=== PATIENT | male | born 1965 | race Caucasian/White ===

== ENCOUNTER 2017-03-13 16:01 | Inpatient (IN) | payer OTHER ==
--- NOTE | 2017-03-13 16:03 | DR.TRAUMA ---
HPI - Time Seen Time seen: 16:00 - HPI Comment HPI Comment: HERE VIA EMS. HIT HEAD WHEN HE FELL AND LOSS CONSCIOUSNESS FOR 45MIN. WAS UNABLE TO GET LAY ON FLOOR FOR 8HOURS. NECK AND RIGHT SHOULDER PAIN. CHEST BRUISE IN UPPER LEFT AND RT CHEST. LEFT FOREHEAD SWOLLEN AND BRUISED. SLEEPY BUT WAKE AND ANSWER QUESTIONS. BLADDER DISTENDED. - Complaint/Symptom Chief Complaint Doctors Comments: FELL IN BATHROOM AT HOME, LOC. NECK AND SHOULDER PAIN. - Nurses notes reviewed Nurses Notes Review: Yes - Source History Provided: Parent, EMS - Mode of Arrival Mode of Arrival: Stretcher - Timing Came on: Suddenly - Duration Duration: Constant Duration: Hours - Context Tetanus: Up to date Mechanism: Fall Prehospital: EMT - Location Location (of pain or injury): Neck, Right, Shoulder, Wrist Lacerations: Extremities - Associated signs and symptoms Associated signs and symptoms: Headache, Weakness ROS - Review of Systems Constitutional: Weakness, Fatigue. negative: Chills, Fever Eyes: No Symptoms Reported ENTM: No Symptoms Reported Cardiovascular: Chest Pain Gastrointestinal/Abdominal: negative: Abdominal Pain, Diarrhea, Nausea, Vomiting Genitourinary: Other (BLADDER DISTENDED.) Neurological: Weakness Musculoskeletal: Back Pain, Neck Pain, Right, Shoulder, Arm Integumentary: Bruises Hematologic/Lymphatic: Easy Bleeding, Easy Bruising Endocrine: No Symptoms Reported All Other Systems: Reviewed and Negative Unable to Obtain Due To: Altered mental status PE - Vitals Vitals: Temperature 97.4 F Pulse Rate [Apical] 73 Pulse Rate 78 Respiratory Rate 18 Blood Pressure [Left Arm] 125/61 Blood Pressure 128/88 O2 Sat by Pulse Oximetry 95 - General Limitations: No Limitations General Appearance: Alert - Head Head Exam: Atraumatic (LT FOREHEAD SWOLLEN AND TENDER.) Head Exam Physical: Other (NONE.) - Eyes Eye exam: PERRL, EOMI, Periorbital Swelling (LT), Periorbital Tenderness (LT). negative: Scleral Icterus, Conjunctival Injection Eyelids: Normal Inspection: Bilateral Pupils: Regular, Round: Bilateral, Reactive: Bilateral Sclera/Conjunctival: Normal Inspection: Bilateral - ENT ENT Exam: Normal External Ear Exam External Ear Exam: Normal External Inspection TM/Canal Exam: Bilateral Normal Mouth Exam: Normal Inspection Teeth Exam: Normal Inspection Throat Exam: Normal Inspection - Neck Neck Exam: Trachea Midline - Chest Chest Inspection: Symmetric Chest Wall Rise, Tenderness Expanded Chest Exam: Abrasion - Respiratory Respiratory Exam: Normal Lung Sounds Bilat, Chest Wall Tenderness (UPPER CHEST.) Respiratory Exam: Bilateral Rhonchi, Lower Rhonchi - Cardiovascular Cardiovascular Exam: Regular Rate, Normal Rhythm, Normal Heart Sounds - Abdominal Exam Abdominal Exam: Normal Bowel Sounds, Soft, Other (BLADDER DISTENDED.). negative : Tenderness - Extremities Extremities Exam: Normal Inspection - Upper Extremities Shoulder Exam: Tenderness (RT SHOUDER WITH DECREASE ROM.) Arm Exam: Tenderness - Neurologic Neurological Exam: Alert, Oriented X3 Speech: Fluid Speech Cranial Nerve Exam: EOM Function (II, III, IV, ): Normal, Facial Sensation (V) : Normal, Facial Palsy (VII): Normal, Gag reflex (XI): Normal, Spinal Accessory Function (XI): Normal, Tongue Deviation: Normal Motor Strength - LUE: 3/5 Motor Strength - RUE: 3/5 Motor Strength - LLE: 3/5 Motor Strength - RLE: 5/5 Upper Motor Neuron Exam: Babinski Sign: Left Positive DTR: Patellar (L): 3+, patellar (R): 4+ - Skin Skin Exam: Erythema MDM - Differential Diagnosis Differential Diagnosis (Trauma): Closed head trauma, Cardiac injury, Fracture (s ), Pneumothorax, Pulmonary contusion, Spine injury Differential Diagnosis (Skin): Abrasion (s), Contusion (s), Hematoma Course - Treatment Treatment: SEE ORDERS. - Consultation Consultation Comments: DISCUSS PATIENT WITH DR. RICH. HE WILL ADMIT PATIENT. - Education/Counseling Education/Counseling: Patient, Education Educated On: Treatment, Diagnosis ROR - Labs Reviewed Laboratory Results Reviewed?: Yes Result Diagrams: 03/14/17 06:05 03/14/17 06:05 Laboratory: WBC 8.9 X10^3/uL (3.6-10.0) 03/14/17 06:05 RBC 4.39 X10^6/uL (4.7-6.0) L 03/14/17 06:05 Hgb 11.4 g/dL (13.5-18.0) L 03/14/17 06:05 Hct 33.8 % (42.0-54.0) L 03/14/17 06:05 MCV 77.1 fL (80.0-100.0) L 03/14/17 06:05 MCH 26.1 pg (27.0-34.0) L 03/14/17 06:05 MCHC 33.8 g/dL (33.0-35.0) 03/14/17 06:05 RDW 18.9 % (11.6-16.5) H 03/14/17 06:05 Plt Count 178 X10^3/uL (150.0-450.0) 03/14/17 06:05 Plt Count Comment Adequate (ADEQUATE) 03/13/17 16:33 MPV 8.3 fL (7.4-11.0) 03/14/17 06:05 Neut % 71.7 % (42.0-75.0) 03/14/17 06:05 Lymph % 15.8 % (21.0-51.0) L 03/14/17 06:05 [place] % 11.1 % (0.0-13.0) 03/14/17 06:05 Eos % 1.0 % (0.9-2.9) 03/14/17 06:05 Baso % 0.4 % (0.2-1.0) 03/14/17 06:05 Neut # 6.4 x10^3/uL (2.2-4.8) H 03/14/17 06:05 Lymph # 1.4 X10^3/uL (1.3-2.9) 03/14/17 06:05 Benson # 1.0 x10^3/uL (0.3-0.8) H 03/14/17 06:05 Eos # 0.1 x10^3/uL (0.0-0.2) 03/14/17 06:05 Baso # 0.0 X10^3/uL (0.0-0.1) 03/14/17 06:05 Absolute Nucleated RBC 0.0 /100WBC 03/14/17 06:05 Plt Morphology Comment Normal (NORMAL) 03/13/17 16:33 RBC Morphology Abnormal (NORMAL) 03/13/17 16:33 Hypochromasia Slight A 03/13/17 16:33 Anisocytosis 1+ A 03/13/17 16:33 Microcytosis Slight A 03/13/17 16:33 Sodium 140 mmol/L (136-145) 03/14/17 06:05 Corrected Sodium 144 mmol/L (136-145) 03/14/17 06:05 Potassium 4.8 mmol/L (3.5-5.1) 03/14/17 06:05 Chloride 106 mmol/L (98-107) 03/14/17 06:05 Carbon Dioxide 26.0 mmol/L (21-32) 03/14/17 06:05 BUN 35 mg/dL (7-18) H 03/14/17 06:05 Creatinine 1.84 mg/dL (0.70-1.30) H 03/14/17 06:05 Est GFR (MDRD) Af Amer 50 (>60) L 03/14/17 06:05 Est GFR (MDRD) Non-Af 41 (>60) L 03/14/17 06:05 Glucose 253 mg/dL (65-99) H 03/14/17 06:05 POC Glucose (mg/dL) 242 mg/dL (65-99) H 03/14/17 06:00 Calcium 8.6 mg/dL (8.5-10.1) 03/14/17 06:05 Corrected Calcium TNP 03/14/17 06:05 Magnesium 2.0 mg/dL (1.7-2.9) 03/14/17 06:05 Total Bilirubin 0.30 mg/dL (0.2-1.0) 03/14/17 06:05 AST 128 Units/L (15-37) H 03/14/17 06:05 ALT 39 Units/L (12-78) 03/14/17 06:05 Alkaline Phosphatase 147 Units/L (46-116) H 03/14/17 06:05 Creatine Kinase 4733 Units/L (39-308) H 03/14/17 06:05 CK-MB (CK-2) 18.3 ng/mL (0-4.0) H* 03/14/17 06:05 CK/CKMB % Calc 0.4 % (<4) 03/14/17 06:05 Troponin I < 0.02 ng/mL (0-1.5) 03/14/17 06:05 B-Natriuretic Peptide 76.6 pg/mL (0-79) 03/13/17 16:33 Total Protein 7.2 g/dL (6.4-8.2) 03/14/17 06:05 Albumin 3.4 g/dL (3.4-5.0) 03/14/17 06:05 Globulin 3.8 g/dL (2.5-4.5) 03/14/17 06:05 Albumin/Globulin Ratio 0.9 Ratio (1.1-2.1) L 03/14/17 06:05 Specimen Type Catherized urine 03/13/17 17:11 Urine Color Yellow (YELLOW) 03/13/17 17:11 Urine Appearance Clear (CLEAR) 03/13/17 17:11 Urine pH 5.0 (5.0 - 8.0) 03/13/17 17:11 Ur Specific [place] 1.020 (1.000-1.030) 03/13/17 17:11 Urine Protein 1+ (NEGATIVE) 03/13/17 17:11 Urine Glucose (UA) 4+ (NEGATIVE) 03/13/17 17:11 Urine Ketones Negative (NEGATIVE) 03/13/17 17:11 Urine Occult Blood 3+ (NEGATIVE) 03/13/17 17:11 Urine Nitrite Negative (NEGATIVE) 03/13/17 17:11 Urine Bilirubin Negative (NEGATIVE) 03/13/17 17:11 Urine Urobilinogen Normal (NORMAL) 03/13/17 17:11 Ur Leukocyte Esterase Negative (NEGATIVE) 03/13/17 17:11 Urine RBC 0-2 /HPF (NEGATIVE) 03/13/17 17:11 Urine WBC 0-2 /HPF (NEGATIVE) 03/13/17 17:11 Ur Squamous Epith Cells Negative /HPF (NEGATIVE) 03/13/17 17:11 Urine Bacteria Trace /HPF (NEGATIVE) 03/13/17 17:11 Urine Mucus Few /HPF (NEGATIVE) 03/13/17 17:11 Ur Culture Indicated? No/not indicated 03/13/17 17:11 Urine Opiates Screen Negative (NEG=<300) 03/13/17 17:11 Urine Methadone Screen Negative (NEG=<300) 03/13/17 17:11 Ur Barbiturates Screen Negative (NEG=<200) 03/13/17 17:11 Ur Phencyclidine Scrn Negative (NEG=<25) 03/13/17 17:11 Ur Amphetamines Screen Negative (NEG=<1000) 03/13/17 17:11 U Benzodiazepines Scrn Negative (NEG=<200) 03/13/17 17:11 Urine Cocaine Screen Negative (NEG=<300) 03/13/17 17:11 U Marijuana (THC) Screen Negative (NEG=<50) 03/13/17 17:11 - XRAY XRAY Interpreted by: Radiologist XRAY Findings: REPORT DISCUSS WITH PATIENT. - EKG Rhythm: NSR (EKG NOTED) - Diagnosis Discharge Problem: Multiple contusions Sprain of ligaments of cervical spine Qualifiers: Encounter type: initial encounter Qualified Code(s): S13.4XXA - Sprain of ligaments of cervical spine, initial encounter Closed head injury Qualifiers: Encounter type: initial encounter Qualified Code(s): S09.90XA - Unspecified injury of head, initial encounter Chest wall contusion Qualifiers: Encounter type: initial encounter Laterality: left Qualified Code(s): S20.212A - Contusion of left front wall of thorax, initial encounter Sprain of part of right shoulder girdle Qualifiers: Encounter type: initial encounter Qualified Code(s): S43.91XA - Sprain of unspecified parts of right shoulder girdle, initial encounter Traumatic hematoma of forehead Qualifiers: Encounter type: initial encounter Qualified Code(s): S00.83XA - Contusion of other part of head, initial encounter Mental status alteration Qualifiers: Altered mental status type: transient alteration of awareness Qualified Code(s) : R40.4 - Transient alteration of awareness Rhabdomyolysis Qualifiers: Rhabdomyolysis type: traumatic Encounter type: initial encounter Qualified Code (s): T79.6XXA - Traumatic ischemia of muscle, initial encounter - Discharge Plan Disposition: 09 ADMITTED INPATIENT Condition: Stable - Follow ups/Referrals - Instructions
[2017-03-13 16:08] VITALS: BMI 31.4
[2017-03-13 16:42] LABS: BASOPHILS # (AUTO) 0.1 X10^3/uL (0.0-0.1); BASOPHILS % (AUTO) 0.6 % (0.2-1.0); EOSINOPHILS % (AUTO) 0.1 % (0.9-2.9); HEMATOCRIT 34.7 % (42.0-54.0); HEMOGLOBIN 11.5 g/dL (13.5-18.0); MEAN CORPUSCULAR HEMOGLOBIN 25.5 pg (27.0-34.0); MEAN CORPUSCULAR HGB CONC 33.2 g/dL (33.0-35.0); MEAN CORPUSCULAR VOLUME 76.7 fL (80.0-100.0); MEAN PLATELET VOLUME 8.2 fL (7.4-11.0); MONOCYTES # (AUTO) 0.8 x10^3/uL (0.3-0.8); MONOCYTES % (AUTO) 9.2 % (0.0-13.0); NEUTROPHILS # (AUTO) 6.8 x10^3/uL (2.2-4.8); NEUTROPHILS % (AUTO) 78.1 % (42.0-75.0); PLATELET COUNT 280 X10^3/uL (150.0-450.0); RED BLOOD COUNT 4.53 X10^6/uL (4.7-6.0); RED CELL DISTRIBUTION WIDTH 18.7 % (11.6-16.5); WHITE BLOOD COUNT 8.7 X10^3/uL (3.6-10.0)
[2017-03-13 17:00] LABS: PLATELET MORPHOLOGY COMMENT NORMAL (NORMAL)
[2017-03-13 17:02] LABS: ANISOCYTOSIS 1+; BLOOD UREA NITROGEN 41 mg/dL (7-18); CALCIUM 9.3 mg/dL (8.5-10.1); CARBON DIOXIDE 27.5 mmol/L (21-32); CHLORIDE 100 mmol/L (98-107); COR NA(FOR HYPERGLY) 141 mmol/L (136-145); CREATININE 2.33 mg/dL (0.70-1.30); HYPOCHROMASIA SLIGHT; MICROCYTOSIS SLIGHT; SODIUM 136 mmol/L (136-145); TROPONIN I < 0.02 ng/mL (0-1.5); eGFR BLACK RACES 38 (>60); eGFR NON BLACK RACES 31 (>60)
--- NOTE | 2017-03-13 17:08 | CT ---
CT Cervical spine without contrast Indication: Fall Technique: Helical CT images of the cervical spine were obtained without IV contrast. Reformatted shruthi ges in the coronal and sagittal planes were also generated for review. Comparison: None Findings: C5-C7 ACDF and interbody bone grafts are present and intact without acute complication. Rem aining vertebral body heights and alignment are normal. No acute fracture or subluxation is identifie d. Mild multilevel degenerative disc disease and facet arthropathy is noted throughout the cervical s pine. Prevertebral soft tissues are unremarkable. Visualized upper lungs are clear. Impression: No CT evidence of acute cervical spine injury. Intact C5-C7 ACDF without acute hardware complication. Reported By:
--- NOTE | 2017-03-13 17:08 | RAD ---
Right humerus, two views Indication: Fall Comparison: None Findings: No acute fracture or malalignment of the right humerus is identified. Mild degenerative aristides nges of the AC joint noted. No gross soft tissue injury seen. Impression: No acute radiographic abnormality of the right humerus. Reported By:
--- NOTE | 2017-03-13 17:08 | CT ---
STUDY: CT HEAD WITHOUT CONTRAST HISTORY: Fall and altered mental status. COMPARISON: None. TECHNIQUE: Multiple axial images of the head were obtained from the skull base to the vertex without administration of IV contrast. Automated exposure control (AEC) was utilized to adjust the MA and/or kV. Findings: There is image degradation due to patient motion. The sulci, cisterns and ventricles are pr ominent consistent with diffuse volume loss. There are confluent and scattered foci of low attenuatio n in the periventricular and subcortical white matter of both hemispheres. This is a nonspecific find ing which likely represents microangiopathic change in a patient of this age. There is an old infarct with encephalomalacia in the right frontal lobe. There is another old infarct involving the right sylvian fissure and superior aspect of the right temporal lobe. There is no deana dence of acute territorial infarction, hemorrhage, mass, mass effect or midline shift. There are no a bnormal extra-axial fluid collections. There is no evidence of acute osseous abnormality. There is soft tissue swelling in the scalp hematom a over the frontal bone, slightly asymmetric to the left of midline. IMPRESSION: 1. No evidence of acute intracranial abnormality. 2. 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 3. Nonspecific white matter change and volume loss as described. 4. If there remains strong clinical concern for acute intracranial abnormality, then an MRI examinati on should be considered for further evaluation. Reported By:
--- NOTE | 2017-03-13 17:11 | RAD ---
Right shoulder, two views Indication: Fall Comparison: None Findings: Evaluation is limited due to technique. Provided AP internal and external rotation views of the right shoulder demonstrate no acute fracture or malalignment. Mild degenerative changes of the A C joint are noted. Calcification of the coracoclavicular ligament suggest sequela from remote trauma. There is no gross soft tissue injury. Impression: No acute radiographic abnormality of the right shoulder. Reported By:
--- NOTE | 2017-03-13 17:12 | CT ---
CT chest without contrast Indication: Patient fell and loss consciousness. Left chest wall bruising. Right arm pain. Technique: Helical images through chest without contrast. Coronal and sagittal reformats provided. Findings: Limited images through the upper abdomen shows nonobstructing left upper pole renal stone o n axial image 66 measuring 2 mm. Review of bone windows demonstrates cervical spine hardware and dege nerative changes of the spine and shoulders. Old right-sided rib fractures noted. Chest: Port-A-Cath tip is over the SVC. Heart size is upper limits of normal/borderline enlarged. Mod erate coronary calcifications noted. No mediastinal abnormality seen. There is no pneumothorax or eff usion. Mild peribronchial thickening. Chronic lung changes noted. Impression: 1. Borderline enlarged heart with coronary artery disease and mild increased interstitial markings. C orrelate clinically for signs of cardiac dysfunction. 2. No acute abnormality seen otherwise. 3. Nonobstructing left upper pole renal stone. Reported By:
[2017-03-13 17:25] LABS: ALANINE AMINOTRANSFERASE 33 Units/L (12-78); ALBUMIN 3.9 g/dL (3.4-5.0); ALKALINE PHOSPHATASE 162 Units/L (46-116); ASPARTATE AMINO TRANSFERASE 110 Units/L (15-37)
[2017-03-13 17:26] LABS: BILIRUBIN,URINE NEGATIVE (NEGATIVE); BLOOD/HEMOGLOBIN,URINE 3+ (NEGATIVE); GLUCOSE, URINE 4+ (NEGATIVE); KETONES,URINE NEGATIVE (NEGATIVE); LEUKOCYTE ESTERASE ,URINE NEGATIVE (NEGATIVE); NITRITES,URINE NEGATIVE (NEGATIVE); PROTEIN,URINE 1+ (NEGATIVE); UROBILINOGEN,URINE NORMAL (NORMAL)
[2017-03-13 17:28] LABS: CKMB % 0.6 % (<4); CREATINE KINASE 4647 Units/L (39-308)
[2017-03-13 17:42] LABS: APPEARANCE,URINE CLEAR (CLEAR); BACTERIA,URINE TRACE /HPF (NEGATIVE); COLOR,URINE YELLOW (YELLOW); MUCUS,URINE FEW /HPF (NEGATIVE); RBC,URINE 0-2 /HPF (NEGATIVE); SQUAMOUS EPITHELIAL CELL,UR NEGATIVE /HPF (NEGATIVE)
--- NOTE | 2017-03-13 20:23 | CT ---
CT lumbar spine without contrast Indication: Lumbar spine pain after fall. Technique: Helical images through the lumbar spine without contrast. Coronal and sagittal reformats p rovided. Findings: There is mild multilevel disc degenerative change and facet arthropathy. There is no cortic al lucency or malalignment. Vertebral body heights are normal. Spinal canal is patent. Neural foramen appear patent. Minimal narrowing of the spinal canal at L2-L3 due to disc bulge noted. Visualized pelvis appears intact. Limited images through the soft tissues of the abdomen and pelvis show nonobstructing right scattered punctate renal stones, probably 3-5 in number. Vascular plaque also noted. Impression: 1. Spine degenerative change without fracture. 2. Nonobstructing left renal stones and vascular plaque. Reported By:
--- NOTE | 2017-03-13 20:25 | CT ---
CT pelvis without contrast Indication: Pain after fall Technique: Helical images through the pelvis without contrast. Coronal and sagittal reformats provide d. Findings: There is no cortical lucency or malalignment. Mild hip joint, spine and SI joint DJD noted. Soft tissues show no acute abnormality with vascular plaque. Impression: No acute pelvis fracture. Reported By:
[2017-03-13] MEDS: NS 1000 ML 1,000 ML IV SCH (20:32)
[2017-03-13] MEDS: HumuLIN R SUBCUT PRN (21:13)
[2017-03-14 00:22] LABS: TROPONIN I < 0.02 ng/mL (0-1.5)
[2017-03-14 00:42] LABS: CKMB % 0.5 % (<4); CREATINE KINASE 4685 Units/L (39-308)
[2017-03-14 00:44] LABS: CREATINE KINASE MB 22.8 ng/mL (0-4.0)
[2017-03-14] MEDS: HumuLIN R SUBCUT PRN ×4 (06:08→21:05)
[2017-03-14 07:27] LABS: BASOPHILS % (AUTO) 0.4 % (0.2-1.0); EOSINOPHILS # (AUTO) 0.1 x10^3/uL (0.0-0.2); HEMATOCRIT 33.8 % (42.0-54.0); HEMOGLOBIN 11.4 g/dL (13.5-18.0); LYMPHOCYTES # (AUTO) 1.4 X10^3/uL (1.3-2.9); LYMPHOCYTES % (AUTO) 15.8 % (21.0-51.0); MEAN CORPUSCULAR HEMOGLOBIN 26.1 pg (27.0-34.0); MEAN CORPUSCULAR HGB CONC 33.8 g/dL (33.0-35.0); MEAN CORPUSCULAR VOLUME 77.1 fL (80.0-100.0); MEAN PLATELET VOLUME 8.3 fL (7.4-11.0); MONOCYTES % (AUTO) 11.1 % (0.0-13.0); NEUTROPHILS # (AUTO) 6.4 x10^3/uL (2.2-4.8); NEUTROPHILS % (AUTO) 71.7 % (42.0-75.0); PLATELET COUNT 178 X10^3/uL (150.0-450.0); RED BLOOD COUNT 4.39 X10^6/uL (4.7-6.0); RED CELL DISTRIBUTION WIDTH 18.9 % (11.6-16.5); WHITE BLOOD COUNT 8.9 X10^3/uL (3.6-10.0)
[2017-03-14 07:32] LABS: ALANINE AMINOTRANSFERASE 39 Units/L (12-78); ALBUMIN 3.4 g/dL (3.4-5.0); ALKALINE PHOSPHATASE 147 Units/L (46-116); ASPARTATE AMINO TRANSFERASE 128 Units/L (15-37); BLOOD UREA NITROGEN 35 mg/dL (7-18); CALCIUM 8.6 mg/dL (8.5-10.1); CHLORIDE 106 mmol/L (98-107); COR NA(FOR HYPERGLY) 144 mmol/L (136-145); CREATININE 1.84 mg/dL (0.70-1.30); SODIUM 140 mmol/L (136-145); TOTAL PROTEIN 7.2 g/dL (6.4-8.2); eGFR BLACK RACES 50 (>60); eGFR NON BLACK RACES 41 (>60)
[2017-03-14 08:09] LABS: TROPONIN I < 0.02 ng/mL (0-1.5)
[2017-03-14 08:12] LABS: CREATINE KINASE MB 18.3 ng/mL (0-4.0)
[2017-03-14 08:13] LABS: CKMB % 0.4 % (<4); CREATINE KINASE 4733 Units/L (39-308)
[2017-03-14] MEDS: NS 1000 ML 1,000 ML IV SCH ×2 (09:38→21:28)
[2017-03-14] MEDS: MORPHINE SULFATE INJ 2 MG INJ IVP PRN ×2 (11:05→16:59)
[2017-03-14] MEDS ORDERED: ANTIVERT TAB 25 MG PO PRN ×2 (11:35→18:13)
[2017-03-14] MEDS ORDERED: PROSCAR PO SCH (12:00)
[2017-03-14] MEDS ORDERED: PLAVIX PO SCH (12:00)
[2017-03-14] MEDS ORDERED: KEPPRA TAB 500 MG PO SCH (12:00)
[2017-03-14] MEDS ORDERED: ALTACE CAP 10 MG PO SCH (12:00)
[2017-03-14] MEDS ORDERED: COREG TAB 25 MG PO SCH (12:00)
[2017-03-14] MEDS ORDERED: ASPIRIN EC 81 MG PO SCH (12:00)
[2017-03-14] MEDS ORDERED: SEROquel XR TAB 400 MG PO SCH (12:00)
[2017-03-14] MEDS ORDERED: ELAVIL PO SCH (12:00)
[2017-03-14] MEDS ORDERED: APRESOLINE TAB 25 MG PO SCH (12:00)
[2017-03-14] MEDS ORDERED: PEPCID TAB 20 MG PO SCH (12:00)
[2017-03-14] MEDS ORDERED: LOPRESSOR TAB 25 MG PO SCH (12:00)
[2017-03-14] MEDS ORDERED: LIORESAL PO PRN (12:00)
[2017-03-14] MEDS: NEURONTIN TAB 600 MG PO SCH ×3 (12:55→21:04)
[2017-03-14] MEDS: HYDROCHLOROTHIAZIDE 12.5 MG CAP PO SCH (12:56)
[2017-03-14] MEDS: LASIX PO SCH (12:56)
--- NOTE | 2017-03-14 14:25 | DR.H&P ---
H&P - History & Physical for Day of: H&P Date: 03/13/17 - Chief Complaint Chief Complaint: AMS, FALL WITH MULTIPLE CONTUSIONS - Allergies Allergies/Adverse Reactions: Allergies Allergy/AdvReac Type Severity Reaction Status Date / Time ketorolac [From Toradol] Allergy Verified 03/13/17 16:01 - History of Present Illness History of Present Illness: HERE VIA EMS. HIT HEAD WHEN HE FELL AND LOSS CONSCIOUSNESS FOR 45MIN. WAS UNABLE TO GET LAY ON FLOOR FOR 8HOURS. NECK AND RIGHT SHOULDER PAIN. CHEST BRUISE IN UPPER LEFT AND RT CHEST. LEFT FOREHEAD SWOLLEN AND BRUISED. SLEEPY BUT WAKE AND ANSWER QUESTIONS. BLADDER DISTENDED. patient's labs on admission revealed a CK of [id number] patient was admitted to ICU for further monitoring, IV hydration. - Past Medical History Past Medical History: Diabetes, Hypertension, ME - Past Surgical History Surgical History: Angioplasty/Stents, Ortho Surgery - Social History Does patient currently use any type of tobacco product: No Have you used tobacco products in the last 12 months: No Type of Tobacco Use: None Does any household member use tobacco: No Alcohol Use: None - Medications Home Medications: Amitriptyline HCl 1 tab PO HS 03/13/17 [History Confirmed 03/14/17] Aspirin EC [ASPIRIN EC 81 MG *] 1 tab PO DAILY 03/13/17 [History Confirmed 03/14] Atorvastatin Calcium [LIPITOR Tab 40 mg *] 1 tab PO HS 03/13/17 [History Confirmed 03/14/17] Baclofen [LIORESAL tab 10 mg *] 1 tab PO Q8H PRN 03/13/17 [History Confirmed ] Carvedilol [COREG TAB 25 MG *] 1 tab PO BID 03/13/17 [History Confirmed 03/14/17 ] Clopidogrel Bisulfate [PLAVIX TAB 75 MG *] 1 tab PO DAILY 03/13/17 [History Confirmed 03/14/17] Famotidine [PEPCID TAB 20 MG *] 1 tab PO BID 03/13/17 [History Confirmed ] Finasteride [Proscar] 1 tab PO DAILY 03/13/17 [History Confirmed 03/14/17] Furosemide [LASIX TAB 20 MG *] 1 tab PO DAILY 03/13/17 [History Confirmed ] Gabapentin [NEURONTIN TAB 600 MG *] 2 tab PO TID 10/26/17 [History Confirmed ] Hydralazine HCl 1 tab PO BID 03/13/17 [History Confirmed 03/14/17] Hydrochlorothiazide [HYDROCHLOROTHIAZIDE 12.5 MG CAP *] 1 cap PO DAILY 03/13/17 [History Confirmed 03/14/17] Levetiracetam [KEPPRA 500 MG *] 1 tab PO BID 03/13/17 [History Confirmed ] Meclizine HCl [ANTIVERT 25 MG *] 1 tab PO TID PRN 03/13/17 [History Confirmed ] Quetiapine Fumarate [Seroquel 400 mg] 1 tab PO HS 03/13/17 [History Confirmed ] Ramelteon [Rozerem] 1 tab PO HS 03/13/17 [History Confirmed 03/14/17] Ramipril [Altace] 2 cap PO DAILY 03/13/17 [History Confirmed 03/14/17] Zolpidem Tartrate [AMBIEN 10 MG *] 1 tab PO HS 03/13/17 [History Confirmed 03/14] Metoprolol Tartrate [Metoprolol Tartrate] 1 tab PO BID 03/14/17 [History Confirmed 03/14/17] - Review of Systems Constitutional: Other (AMS) Eyes: No Symptoms Reported ENT: No Symptoms Reported Respiratory: No Symptoms Reported Cardiovascular: No Symptoms Reported Gastrointestinal: No Symptoms Reported Genitourinary: No Symptoms Reported Musculoskeletal: Shoulder Pain, Back Pain, Leg Pain Skin: Bruising, Wound Neurological: Weakness, Confusion - Physical Exam Vital Signs: Temperature 98.0 F Pulse Rate [Apical] 85 Pulse Rate 78 Respiratory Rate 20 Blood Pressure [Left Arm] 231/110 Blood Pressure 128/88 O2 Sat by Pulse Oximetry 99 Oriented: Other Eyes: Normal Ear: Normal Nose: Normal Throat: Normal Respiratory: RLL Diminished, LLL Diminished Cardiovascular: Normal : Normal Auscultation: Bowel Sounds: Normal Palpation: Normal Tenderness: Normal Skin: Decreased Turgur, Bruising Musculoskeletal: Shoulder, Back:Lumbar Psychiatric: Other (DIFFICULT TO AROUSE, APPEARS SEDATED) Speech Pattern: Aphasic - Assessment/Plan (1) Mental status alteration Qualifiers: Altered mental status type: transient alteration of awareness Qualified Code(s): R40.4 - Transient alteration of awareness Status: Acute Plan: ADMIT TO ICU, CT'S DONE IN ER. CARDIAC MONITORING, IV HYDRATION, REPEAT AM LABS. BP MONITORING, SUPPLEMENTAL O2 (2) Rhabdomyolysis Qualifiers: Rhabdomyolysis type: traumatic Encounter type: initial encounter Qualified Code(s): T79.6XXA - Traumatic ischemia of muscle, initial encounter Status: Acute (3) Multiple contusions Status: Acute
[2017-03-14] MEDS: LIPITOR TAB 40 MG PO SCH (20:07)
[2017-03-14] MEDS: APRESOLINE TAB 25 MG PO SCH (20:08)
[2017-03-14] MEDS: COREG TAB 25 MG PO SCH (20:08)
[2017-03-14] MEDS: KEPPRA TAB 500 MG PO SCH (20:08)
[2017-03-14] MEDS: LOPRESSOR TAB 25 MG PO SCH (20:08)
[2017-03-14] MEDS: PEPCID TAB 20 MG PO SCH (20:08)
[2017-03-14] MEDS: LIORESAL PO PRN (20:08)
[2017-03-14] MEDS: PATIENT'S HOME MEDICATION PO SCH (20:09)
[2017-03-14] MEDS ORDERED: PATIENT'S HOME MEDICATION (Hydralazine Hcl [Hydralazine Hcl] 1 TAB) PO SCH (21:00)
[2017-03-14] MEDS ORDERED: QUETIAPINE FUMARATE PO SCH (21:00)
[2017-03-14] MEDS ORDERED: AMBIEN PO PRN (21:00)
[2017-03-14] MEDS ORDERED: LIPITOR TAB 40 MG PO SCH (21:00)
[2017-03-14] MEDS: AMBIEN PO SCH (21:04)
[2017-03-14] MEDS: SNACK - Diabetic Appropriate PO SCH (21:04)
[2017-03-14] MEDS: RAMELTEON PO SCH (21:37)
[2017-03-15] MEDS: MORPHINE SULFATE INJ 2 MG INJ IVP PRN ×2 (02:04→08:20)
[2017-03-15 06:21] LABS: BASOPHILS % (AUTO) 0.3 % (0.2-1.0); EOSINOPHILS # (AUTO) 0.1 x10^3/uL (0.0-0.2); EOSINOPHILS % (AUTO) 1.5 % (0.9-2.9); HEMATOCRIT 32.2 % (42.0-54.0); HEMOGLOBIN 10.8 g/dL (13.5-18.0); LYMPHOCYTES # (AUTO) 1.7 X10^3/uL (1.3-2.9); LYMPHOCYTES % (AUTO) 19.2 % (21.0-51.0); MEAN CORPUSCULAR HEMOGLOBIN 25.9 pg (27.0-34.0); MEAN CORPUSCULAR HGB CONC 33.7 g/dL (33.0-35.0); MEAN PLATELET VOLUME 8.1 fL (7.4-11.0); MONOCYTES # (AUTO) 1.1 x10^3/uL (0.3-0.8); MONOCYTES % (AUTO) 12.2 % (0.0-13.0); NEUTROPHILS # (AUTO) 5.9 x10^3/uL (2.2-4.8); NEUTROPHILS % (AUTO) 66.8 % (42.0-75.0); PLATELET COUNT 213 X10^3/uL (150.0-450.0); RED BLOOD COUNT 4.18 X10^6/uL (4.7-6.0); RED CELL DISTRIBUTION WIDTH 18.2 % (11.6-16.5); WHITE BLOOD COUNT 8.8 X10^3/uL (3.6-10.0)
[2017-03-15 06:39] LABS: ALANINE AMINOTRANSFERASE 42 Units/L (12-78); ALBUMIN 3.2 g/dL (3.4-5.0); ALKALINE PHOSPHATASE 126 Units/L (46-116); ASPARTATE AMINO TRANSFERASE 121 Units/L (15-37); BLOOD UREA NITROGEN 22 mg/dL (7-18); CALCIUM 8.7 mg/dL (8.5-10.1); CARBON DIOXIDE 30.5 mmol/L (21-32); CHLORIDE 102 mmol/L (98-107); COR CA(FOR HYPOALB) 9.3 mg/dL (8.5-10.1); COR NA(FOR HYPERGLY) 143 mmol/L (136-145); CREATININE 1.41 mg/dL (0.70-1.30); SODIUM 140 mmol/L (136-145); TOTAL PROTEIN 7.2 g/dL (6.4-8.2); eGFR BLACK RACES > 60 (>60); eGFR NON BLACK RACES 56 (>60)
[2017-03-15 06:42] LABS: CREATINE KINASE 3444 Units/L (39-308)
[2017-03-15] MEDS: HumuLIN R SUBCUT PRN ×4 (06:48→21:20)
[2017-03-15] MEDS: NEURONTIN TAB 600 MG PO SCH ×3 (06:49→21:20)
[2017-03-15 07:08] LABS: PLATELET MORPHOLOGY COMMENT NORMAL (NORMAL)
[2017-03-15] MEDS: LOPRESSOR TAB 25 MG PO SCH ×2 (08:20→20:10)
[2017-03-15] MEDS: KEPPRA TAB 500 MG PO SCH ×2 (08:20→20:09)
[2017-03-15] MEDS: ALTACE CAP 10 MG PO SCH (08:20)
[2017-03-15] MEDS: PROSCAR PO SCH (08:21)
[2017-03-15] MEDS: COREG TAB 25 MG PO SCH ×2 (08:21→20:10)
[2017-03-15] MEDS: PLAVIX PO SCH (08:21)
[2017-03-15] MEDS: PEPCID TAB 20 MG PO SCH ×2 (08:21→20:10)
[2017-03-15] MEDS: LASIX PO SCH (08:21)
[2017-03-15] MEDS: ASPIRIN EC 81 MG PO SCH (08:21)
[2017-03-15] MEDS: APRESOLINE TAB 25 MG PO SCH ×2 (08:21→20:10)
[2017-03-15] MEDS: HYDROCHLOROTHIAZIDE 12.5 MG CAP PO SCH (08:21)
[2017-03-15] MEDS: NS 1000 ML 1,000 ML IV SCH ×2 (08:26→12:18)
[2017-03-15] MEDS: NORCO 7.5/325 MG TAB PO PRN ×2 (14:09→20:09)
--- NOTE | 2017-03-15 17:23 | CT ---
Right shoulder CT without contrast Indication: Fall with right shoulder pain Technique: Helical CT images of the right shoulder were obtained without IV contrast. Reformatted shruthi ges in the coronal and sagittal planes were also generated for review. Comparison: 03/13/17 Findings: No acute fracture or malalignment of the right shoulder is identified. There mild degenerat kye changes of the AC as well as glenohumeral joints with a small osteochondral body noted along the anterior medial glenohumeral joint space. No appreciable effusion is identified, given limitations of CT technique. There is calcification of the coracoclavicular ligament, compatible with sequela from remote injury. A right-sided port catheter is partially visualized. Anterior fusion hardware within lower cervical s pine is also noted. The imaged right hemithorax is otherwise unremarkable. Impression: No acute fracture or malalignment of the right shoulder. Mild AC and glenohumeral joint DJD. Calcification of the coracoclavicular ligament, compatible with sequela of remote trauma. Reported By:
[2017-03-15] MEDS: SNACK - Diabetic Appropriate PO SCH (19:58)
[2017-03-15] MEDS: LIORESAL PO PRN (20:09)
[2017-03-15] MEDS: LIPITOR TAB 40 MG PO SCH (20:10)
[2017-03-15] MEDS: AMBIEN PO SCH (21:20)
[2017-03-15] MEDS: RAMELTEON PO SCH (21:24)
[2017-03-15] MEDS: PATIENT'S HOME MEDICATION PO SCH (21:24)
[2017-03-16] MEDS: NS 1000 ML 1,000 ML IV SCH ×3 (02:42→13:16)
[2017-03-16 05:37] LABS: BASOPHILS % (AUTO) 0.5 % (0.2-1.0); EOSINOPHILS # (AUTO) 0.2 x10^3/uL (0.0-0.2); EOSINOPHILS % (AUTO) 2.7 % (0.9-2.9); HEMATOCRIT 30.8 % (42.0-54.0); HEMOGLOBIN 10.4 g/dL (13.5-18.0); LYMPHOCYTES # (AUTO) 1.7 X10^3/uL (1.3-2.9); LYMPHOCYTES % (AUTO) 25.2 % (21.0-51.0); MEAN CORPUSCULAR HEMOGLOBIN 25.7 pg (27.0-34.0); MEAN CORPUSCULAR HGB CONC 33.9 g/dL (33.0-35.0); MONOCYTES # (AUTO) 0.8 x10^3/uL (0.3-0.8); MONOCYTES % (AUTO) 11.5 % (0.0-13.0); NEUTROPHILS % (AUTO) 60.1 % (42.0-75.0); PLATELET COUNT 212 X10^3/uL (150.0-450.0); RED BLOOD COUNT 4.05 X10^6/uL (4.7-6.0); RED CELL DISTRIBUTION WIDTH 17.9 % (11.6-16.5); WHITE BLOOD COUNT 6.6 X10^3/uL (3.6-10.0)
[2017-03-16 05:46] LABS: ALANINE AMINOTRANSFERASE 41 Units/L (12-78); ALBUMIN 2.8 g/dL (3.4-5.0); ALKALINE PHOSPHATASE 114 Units/L (46-116); ASPARTATE AMINO TRANSFERASE 87 Units/L (15-37); BLOOD UREA NITROGEN 20 mg/dL (7-18); CALCIUM 8.8 mg/dL (8.5-10.1); CARBON DIOXIDE 28.4 mmol/L (21-32); CHLORIDE 105 mmol/L (98-107); COR CA(FOR HYPOALB) 9.8 mg/dL (8.5-10.1); COR NA(FOR HYPERGLY) 138 mmol/L (136-145); CREATININE 1.23 mg/dL (0.70-1.30); SODIUM 135 mmol/L (136-145); eGFR BLACK RACES > 60 (>60); eGFR NON BLACK RACES > 60 (>60)
[2017-03-16 06:06] LABS: ANISOCYTOSIS SLIGHT; HYPOCHROMASIA SLIGHT; MICROCYTOSIS SLIGHT; PLATELET MORPHOLOGY COMMENT NORMAL (NORMAL)
[2017-03-16] MEDS: HumuLIN R SUBCUT PRN ×4 (06:21→21:17)
[2017-03-16] MEDS: NEURONTIN TAB 600 MG PO SCH ×3 (06:21→21:15)
[2017-03-16] MEDS ORDERED: MAG-OX TAB PO PRN (06:46)
[2017-03-16] MEDS ORDERED: K-LYTE EFFERVESCENT PO PRN (06:46)
[2017-03-16] MEDS ORDERED: MAGNESIUM SULFATE 1 GM/100 mL PREMIX 1 GM/100 ML BAG IV PRN (06:46)
[2017-03-16] MEDS: K-RIDER 10 MEQ/NS 100 ML 10 MEQ/100 ML BAG IV PRN ×4 (07:36→11:10)
[2017-03-16] MEDS: COREG TAB 25 MG PO SCH ×2 (08:57→20:14)
[2017-03-16] MEDS: ALTACE CAP 10 MG PO SCH (08:57)
[2017-03-16] MEDS: APRESOLINE TAB 25 MG PO SCH ×2 (08:57→20:14)
[2017-03-16] MEDS: KEPPRA TAB 500 MG PO SCH ×2 (08:58→20:14)
[2017-03-16] MEDS: PEPCID TAB 20 MG PO SCH ×2 (08:58→20:14)
[2017-03-16] MEDS: LASIX PO SCH (08:58)
[2017-03-16] MEDS: LOPRESSOR TAB 25 MG PO SCH ×2 (08:58→20:14)
[2017-03-16] MEDS: HYDROCHLOROTHIAZIDE 12.5 MG CAP PO SCH (08:58)
[2017-03-16] MEDS: PROSCAR PO SCH (08:58)
[2017-03-16] MEDS: ASPIRIN EC 81 MG PO SCH (08:58)
[2017-03-16] MEDS: PLAVIX PO SCH (08:59)
[2017-03-16] MEDS: NORCO 7.5/325 MG TAB PO PRN (16:08)
[2017-03-16] MEDS: NORVASC TAB 5 MG PO SCH (17:22)
[2017-03-16] MEDS: LIPITOR TAB 40 MG PO SCH (20:14)
[2017-03-16] MEDS: SNACK - Diabetic Appropriate PO SCH (20:53)
[2017-03-16] MEDS: PATIENT'S HOME MEDICATION PO SCH (21:15)
[2017-03-16] MEDS: AMBIEN PO SCH (21:15)
[2017-03-16] MEDS: RAMELTEON PO SCH (21:16)
[2017-03-17] MEDS: NORCO 7.5/325 MG TAB PO PRN ×4 (02:06→20:00)
[2017-03-17] MEDS: LIORESAL PO PRN ×2 (02:07→21:39)
[2017-03-17 05:39] LABS: ALANINE AMINOTRANSFERASE 46 Units/L (12-78); ALBUMIN 2.9 g/dL (3.4-5.0); ALKALINE PHOSPHATASE 113 Units/L (46-116); ASPARTATE AMINO TRANSFERASE 78 Units/L (15-37); BLOOD UREA NITROGEN 21 mg/dL (7-18); CARBON DIOXIDE 27.9 mmol/L (21-32); CHLORIDE 103 mmol/L (98-107); COR CA(FOR HYPOALB) 9.9 mg/dL (8.5-10.1); COR NA(FOR HYPERGLY) 142 mmol/L (136-145); CREATININE 1.29 mg/dL (0.70-1.30); MAGNESIUM 1.6 mg/dL (1.7-2.9); SODIUM 140 mmol/L (136-145); eGFR BLACK RACES > 60 (>60); eGFR NON BLACK RACES > 60 (>60)
[2017-03-17 06:26] LABS: BASOPHILS % (AUTO) 0.7 % (0.2-1.0); EOSINOPHILS # (AUTO) 0.3 x10^3/uL (0.0-0.2); EOSINOPHILS % (AUTO) 4.4 % (0.9-2.9); HEMATOCRIT 30.9 % (42.0-54.0); HEMOGLOBIN 10.6 g/dL (13.5-18.0); LYMPHOCYTES # (AUTO) 1.8 X10^3/uL (1.3-2.9); LYMPHOCYTES % (AUTO) 27.6 % (21.0-51.0); MEAN CORPUSCULAR HEMOGLOBIN 25.7 pg (27.0-34.0); MEAN CORPUSCULAR HGB CONC 34.3 g/dL (33.0-35.0); MONOCYTES # (AUTO) 0.6 x10^3/uL (0.3-0.8); MONOCYTES % (AUTO) 9.9 % (0.0-13.0); NEUTROPHILS # (AUTO) 3.7 x10^3/uL (2.2-4.8); NEUTROPHILS % (AUTO) 57.4 % (42.0-75.0); PLATELET COUNT 227 X10^3/uL (150.0-450.0); RED BLOOD COUNT 4.12 X10^6/uL (4.7-6.0); RED CELL DISTRIBUTION WIDTH 18.1 % (11.6-16.5); WHITE BLOOD COUNT 6.4 X10^3/uL (3.6-10.0)
[2017-03-17] MEDS: NS 1000 ML 1,000 ML IV SCH ×3 (06:29→20:00)
[2017-03-17] MEDS: NEURONTIN TAB 600 MG PO SCH ×3 (06:30→21:06)
[2017-03-17] MEDS: HumuLIN R SUBCUT PRN ×4 (06:35→20:08)
[2017-03-17 06:55] LABS: ANISOCYTOSIS SLIGHT; HYPOCHROMASIA SLIGHT; MICROCYTOSIS SLIGHT; PLATELET MORPHOLOGY COMMENT NORMAL (NORMAL)
[2017-03-17] MEDS: APRESOLINE TAB 25 MG PO SCH ×2 (08:41→20:02)
[2017-03-17] MEDS: COREG TAB 25 MG PO SCH ×2 (08:42→20:02)
[2017-03-17] MEDS: ALTACE CAP 10 MG PO SCH (08:42)
[2017-03-17] MEDS: NORVASC TAB 5 MG PO SCH (08:42)
[2017-03-17] MEDS: PEPCID TAB 20 MG PO SCH ×2 (08:42→20:02)
[2017-03-17] MEDS: PLAVIX PO SCH (08:42)
[2017-03-17] MEDS: HYDROCHLOROTHIAZIDE 12.5 MG CAP PO SCH (08:42)
[2017-03-17] MEDS: LASIX PO SCH (08:43)
[2017-03-17] MEDS: LOPRESSOR TAB 25 MG PO SCH ×2 (08:43→20:03)
[2017-03-17] MEDS: ASPIRIN EC 81 MG PO SCH (08:43)
[2017-03-17] MEDS: PROSCAR PO SCH (08:43)
[2017-03-17] MEDS: KEPPRA TAB 500 MG PO SCH ×2 (08:43→20:02)
--- NOTE | 2017-03-17 14:47 | MRI ---
Indication: Shoulder pain Exam: MRI right shoulder without contrast Technique: Routine multiplanar multi sequence imaging was performed through the right shoulder withou t contrast. Findings: The glenohumeral joint is intact. No fracture or dislocation is seen. There is moderate thi ckening and abnormal signal throughout the supraspinatus tendon with a small focal area of fluid sign al at the insertion site along the inferior articular surface of the tendon with no retraction seen. There is a small joint effusion with minimal fluid in the surrounding bursa. There are moderate hyper trophic changes of the AC joint with downsloping of acromion causing moderate narrowing of the acromi ohumeral space. The labrum and biceps tendon are intact and normal signal intensity . There is abnorm al thickening and increase stranding and edema in the subdeltoid muscle which is most prominent anter iorly and extending posteriorly . The scapularis tendon is intact and normal signal intensity. There is mild edema and stranding in the subcutaneous soft tissues around the superior aspect of the should er extending inferiorly around the trapezius muscle with mild edema and stranding in the subscapulari s muscle extending to the musculotendinous junction. Impression: Moderate supraspinatus tendinopathy with a small partial tear along the inferior articular surface ex tending to the insertion site. Small joint effusion with no acute bony abnormality. Moderate hypertrophic changes of the AC joint and downsloping of the acromion causing mild narrowing of the acromiohumeral space. Questionable mild partials tear or strain of the deltoid muscle anteriorly extending laterally which is most prominent anteriorly and inferiorly Questionable mild partial tear or strain of the supraspinatus muscle extending to the insertion site with mild stranding and edema in the subcutaneous soft tissues around the right trapezius muscle and superior aspect of the shoulder. Reported By:
[2017-03-17] MEDS: SNACK - Diabetic Appropriate PO SCH (19:59)
[2017-03-17] MEDS: LIPITOR TAB 40 MG PO SCH (20:01)
[2017-03-17] MEDS: AMBIEN PO SCH (20:02)
[2017-03-17] MEDS: PATIENT'S HOME MEDICATION PO SCH (20:03)
[2017-03-17] MEDS: RAMELTEON PO SCH (20:04)
[2017-03-18] MEDS: NS 1000 ML 1,000 ML IV SCH ×2 (03:51→08:55)
[2017-03-18] MEDS: HumuLIN R SUBCUT PRN ×3 (05:56→16:29)
[2017-03-18] MEDS: NEURONTIN TAB 600 MG PO SCH ×2 (05:56→14:47)
[2017-03-18] MEDS: NORCO 7.5/325 MG TAB PO PRN ×2 (05:56→12:46)
[2017-03-18 06:20] LABS: ALANINE AMINOTRANSFERASE 40 Units/L (12-78); ALBUMIN 2.9 g/dL (3.4-5.0); ALKALINE PHOSPHATASE 120 Units/L (46-116); ASPARTATE AMINO TRANSFERASE 52 Units/L (15-37); BLOOD UREA NITROGEN 22 mg/dL (7-18); CARBON DIOXIDE 24.6 mmol/L (21-32); CHLORIDE 103 mmol/L (98-107); COR CA(FOR HYPOALB) 9.9 mg/dL (8.5-10.1); COR NA(FOR HYPERGLY) 141 mmol/L (136-145); CREATININE 1.31 mg/dL (0.70-1.30); SODIUM 137 mmol/L (136-145); TOTAL PROTEIN 6.9 g/dL (6.4-8.2); eGFR BLACK RACES > 60 (>60); eGFR NON BLACK RACES > 60 (>60)
[2017-03-18 07:07] LABS: BASOPHILS % (AUTO) 0.9 % (0.2-1.0); EOSINOPHILS # (AUTO) 0.3 x10^3/uL (0.0-0.2); EOSINOPHILS % (AUTO) 5.2 % (0.9-2.9); HEMATOCRIT 30.7 % (42.0-54.0); HEMOGLOBIN 10.4 g/dL (13.5-18.0); LYMPHOCYTES # (AUTO) 1.5 X10^3/uL (1.3-2.9); LYMPHOCYTES % (AUTO) 28.7 % (21.0-51.0); MEAN CORPUSCULAR HEMOGLOBIN 25.6 pg (27.0-34.0); MEAN CORPUSCULAR HGB CONC 33.8 g/dL (33.0-35.0); MEAN CORPUSCULAR VOLUME 75.6 fL (80.0-100.0); MEAN PLATELET VOLUME 7.7 fL (7.4-11.0); MONOCYTES # (AUTO) 0.5 x10^3/uL (0.3-0.8); MONOCYTES % (AUTO) 10.1 % (0.0-13.0); NEUTROPHILS # (AUTO) 2.9 x10^3/uL (2.2-4.8); NEUTROPHILS % (AUTO) 55.1 % (42.0-75.0); PLATELET COUNT 218 X10^3/uL (150.0-450.0); RED BLOOD COUNT 4.06 X10^6/uL (4.7-6.0); RED CELL DISTRIBUTION WIDTH 17.4 % (11.6-16.5); WHITE BLOOD COUNT 5.3 X10^3/uL (3.6-10.0)
--- NOTE | 2017-03-18 07:21 | RAD ---
HISTORY: Diabetes, hypertension Study: Chest AP portable Comparison: CT chest 03/15/2017 Findings: The trachea is midline. The cardiac silhouette is unremarkable. The lungs are clear without focal i nfiltrate or effusion. The bony thorax is unremarkable. There is a right-sided port present. IMPRESSION: 1. No acute cardiopulmonary disease. Reported By:
[2017-03-18] MEDS: ALTACE CAP 10 MG PO SCH (08:52)
[2017-03-18] MEDS: LOPRESSOR TAB 25 MG PO SCH (08:52)
[2017-03-18] MEDS: ASPIRIN EC 81 MG PO SCH (08:52)
[2017-03-18] MEDS: PROSCAR PO SCH (08:53)
[2017-03-18] MEDS: HYDROCHLOROTHIAZIDE 12.5 MG CAP PO SCH (08:53)
[2017-03-18] MEDS: KEPPRA TAB 500 MG PO SCH (08:53)
[2017-03-18] MEDS: PEPCID TAB 20 MG PO SCH (08:53)
[2017-03-18] MEDS: LASIX PO SCH (08:53)
[2017-03-18] MEDS: APRESOLINE TAB 25 MG PO SCH (08:53)
[2017-03-18] MEDS: COREG TAB 25 MG PO SCH (08:53)
[2017-03-18] MEDS: NORVASC TAB 5 MG PO SCH (08:53)
[2017-03-18] MEDS: PLAVIX PO SCH (08:53)
[2017-03-18] MEDS ORDERED: DEMEROL INJ IVP ONE (09:32)
[2017-03-18] MEDS ORDERED: DEMEROL INJ ONE (10:04)
[2017-03-18 13:25] VITALS: BP 139/79
--- NOTE | 2017-03-18 16:37 | DR.CONSULT ---
Consult - Consultation for Day of: Date: 03/17/17 (thanks for the consult) - Chief Complaint Chief Complaint: rt shoulder pain and inability to move the rt shoulder. - Allergies Allergies/Adverse Reactions: Allergies Allergy/AdvReac Type Severity Reaction Status Date / Time ketorolac [From Toradol] Allergy Verified 03/13/17 16:01 - History of Present Illness History of Present Illness: h/o fall at home and laied unconious for prolonged time. his shoulder hurts now. unabl to move his shoulder beyond 30 deg past flexion or absuction. seen in the ER- XR- no fractures or dislocation. - Past Medical History Past Medical History: Diabetes, Hypertension, NV - Past Surgical History Surgical History: Angioplasty/Stents, Ortho Surgery - Social History Does patient currently use any type of tobacco product: No Have you used tobacco products in the last 12 months: No Type of Tobacco Use: None Does any household member use tobacco: No Alcohol Use: None - Medications Home Medications: Amitriptyline HCl 1 tab PO HS 03/13/17 [History Confirmed 03/14/17] Aspirin EC [ASPIRIN EC 81 MG *] 1 tab PO DAILY 03/13/17 [History Confirmed 03/14] Atorvastatin Calcium [LIPITOR Tab 40 mg *] 1 tab PO HS 03/13/17 [History Confirmed 03/14/17] Baclofen [LIORESAL tab 10 mg *] 1 tab PO Q8H PRN 03/13/17 [History Confirmed ] Carvedilol [COREG TAB 25 MG *] 1 tab PO BID 03/13/17 [History Confirmed 03/14/17 ] Clopidogrel Bisulfate [PLAVIX TAB 75 MG *] 1 tab PO DAILY 03/13/17 [History Confirmed 03/14/17] Famotidine [PEPCID TAB 20 MG *] 1 tab PO BID 03/13/17 [History Confirmed ] Finasteride [Proscar] 1 tab PO DAILY 03/13/17 [History Confirmed 03/14/17] Furosemide [LASIX TAB 20 MG *] 1 tab PO DAILY 03/13/17 [History Confirmed ] Gabapentin [NEURONTIN TAB 600 MG *] 2 tab PO TID 03/13/17 [History Confirmed ] Hydralazine HCl 1 tab PO BID 03/13/17 [History Confirmed 03/14/17] Hydrochlorothiazide [HYDROCHLOROTHIAZIDE 12.5 MG CAP *] 1 cap PO DAILY 03/13/17 [History Confirmed 03/14/17] Levetiracetam [KEPPRA 500 MG *] 1 tab PO BID 03/13/17 [History Confirmed ] Meclizine HCl [ANTIVERT 25 MG *] 1 tab PO TID PRN 03/13/17 [History Confirmed ] Quetiapine Fumarate [Seroquel 400 mg] 1 tab PO HS 03/13/17 [History Confirmed ] Ramelteon [Rozerem] 1 tab PO HS 03/13/17 [History Confirmed 03/14/17] Ramipril [Altace] 2 cap PO DAILY 03/13/17 [History Confirmed 03/14/17] Zolpidem Tartrate [AMBIEN 10 MG *] 1 tab PO HS 03/13/17 [History Confirmed 03/14] Metoprolol Tartrate [Metoprolol Tartrate] 1 tab PO BID 03/14/17 [History Confirmed 03/14/17] - Review of Systems Musculoskeletal: Shoulder Pain - Physical Exam Vital Signs: Temperature 98.5 F Pulse Rate [Apical] 69 Pulse Rate 78 Respiratory Rate 17 Blood Pressure [Left Arm] 139/79 Blood Pressure 128/88 O2 Sat by Pulse Oximetry 95 Musculoskeletal: Right, Shoulder, Tender (rt shoulder- difuse tenderness. ROM unable to test due to pain. any other tests unable due to pain. pain out of proportion to the exam.) - Plan Plan: RT shoulder contusion . no active orthopedic intervention. will need PT/ OT for rehab. Follow up in my office in 3 weeks from now.
== END 2017-03-18 17:35 | disposition home or self-care (01) | DRG 884 ==
LOC: ER 16:01 → ICU 18:53
PROVIDERS: ADMIT Internal Medicine; ATTEND Internal Medicine
DX: R40.4 Transient alteration of awareness (principal); M62.82 Rhabdomyolysis; T14.8XXA Other injury of unspecified body region, initial encounter; S13.4XXA Sprain of ligaments of cervical spine, initial encounter; S09.90XA Unspecified injury of head, initial encounter; S20.212A Contusion of left front wall of thorax, initial encounter; S43.91XA Sprain of unspecified parts of right shoulder girdle, initial encounter; S00.83XA Contusion of other part of head, initial encounter; R94.31 Abnormal electrocardiogram [ECG] [EKG]; W19.XXXA Unspecified fall, initial encounter; Y92.091 Bathroom in other non-institutional residence as the place of occurrence of the external cause; E11.65 Type 2 diabetes mellitus with hyperglycemia; M25.511 Pain in right shoulder; R26.89 Other abnormalities of gait and mobility
CPT/HCPCS: 36415; 70450; 71010; 71250; 72125; 72131; 72192; 73030; 73060; 73200; 73221; 80053; 80307; 81001; 82550; 82553; 83735; 83880; 84132; 84484; 85025; 93005; 93010; 99231; 99284; A4222; S0138; G0434; J1815; J2175; J2270; J3480